=== PATIENT | female | born 1975 | race Caucasian/White ===

== ENCOUNTER 2024-05-16 10:06 | Outpatient (CLI) | payer OTHER, SELFPAY ==
--- NOTE | ~2024-05-16 | MR_ITS ---
MRI of the right knee Clinical history: Medial meniscus tear Technique: Coronal proton density and proton density-weighted images, sagittal proton-density and T2 fat-sat images, and axial proton-density fat-saturated images were acquired. Findings: Anterior and posterior cruciate ligaments are intact. Medial collateral ligament and the la teral collateral ligament conflux are intact. Popliteus tendon is intact. Medial and lateral menisci are intact, without evidence of tear. There is patchy moderate to high-grade chondromalacia patella, especially at the apex and lateral fac et. There is moderate chondromalacia extensively involving the medial compartment, especially medial femoral condyle and medial tibia near the joint line. There is focal high-grade chondromalacia at the inner aspect of the lateral tibial plateau. Extensor mechanism is intact. No significant joint effusion. No Gates's cyst. There is mild semimembr anosus bursitis. Impression: No ligamentous injury or meniscal tear. Tricompartmental chondromalacia, as detailed above. Mild semimembranosus bursitis. Reviewed, dictated and finalized at [facility]. Impression: No ligamentous injury or meniscal tear. Tricompartmental chondromalacia, as detailed above. Mild semimembranosus bursitis.
== END 2024-05-16 10:07 | disposition home or self-care (01) ==
LOC: MICIMG 10:09
PROVIDERS: PCP Orthopaedic Surgery; Visit Provider Orthopaedic Surgery
DX: M94.261 Chondromalacia, right knee (principal); M70.51 Other bursitis of knee, right knee; S83.241A Other tear of medial meniscus, current injury, right knee, initial encounter; X58.XXXA Exposure to other specified factors, initial encounter
CPT/HCPCS: 73721